=== PATIENT | male | born 1985 | race Hispanic/Latino ===

== ENCOUNTER → 2021-04-13 | Day surgery (SDC) | payer BC ==
[~2021-04-13] MED LIST: AMLODIPINE BES2.5 MG PO; FLONASE ALLERG9.9 ML; GLUCAGON FOR INJ 1 MG VIAL ONE; HYOSCYAMINE SULFATE 0.5 MG/ML INJ ONE; LIDOCAINE HCL 2% LOCAL INJ 5 ML SDV VIAL INJ ONE; OMEPRAZOLE40 MG PO; PROBIOTIC250 MG PO; PROPOFOL IV EMULSION 10 MG/ML 20 ML VIAL ONE; VITAMIN D PO
[2021-04-13 09:10] VITALS: BP 145/89
[2021-04-13 10:13] LABS: WBC,FECAL (FECAL LACTOFERRIN) NEGATIVE (NEGATIVE)
[2021-04-13 14:19] LABS: C DIFFICILE TOXIN A&B AMP PROB NEGATIVE (NEGATIVE)
== END | disposition home or self-care (01) ==
LOC: OR 05:43
PROVIDERS: ATTEND Internal Medicine Gastroenterology
DX: K59.00 Constipation, unspecified (principal); D12.2 Benign neoplasm of ascending colon; D12.4 Benign neoplasm of descending colon; K52.9 Noninfective gastroenteritis and colitis, unspecified; K62.89 Other specified diseases of anus and rectum; K64.8 Other hemorrhoids; K64.5 Perianal venous thrombosis; R63.4 Abnormal weight loss; K21.9 Gastro-esophageal reflux disease without esophagitis; I10 Essential (primary) hypertension; R00.1 Bradycardia, unspecified; F41.9 Anxiety disorder, unspecified; Z01.810 Encounter for preprocedural cardiovascular examination; Z01.812 Encounter for preprocedural laboratory examination; Z20.822 Contact with and (suspected) exposure to COVID-19
CPT/HCPCS: 45380; 45385; 83630; 83993; 87045; 87177; 87328; 87493; 93005; J1610; J1980; J2001; J2704; U0002; 45378